=== PATIENT | male | born 1995 | race Caucasian/White ===

== ENCOUNTER 2024-05-31 17:04 | Emergency (ER) | payer MEDICAID, OTHER ==
[~2024-05-31] VITALS: Ht 180.3 cm; Wt 95.7 kg
[2024-05-31] MEDS: KETOROLAC TROMETH 30 MG/ML 1ML VIAL IV ONE (17:38)
[2024-05-31] MEDS: methylPREDNISolone SOD SUCC 125 MG/2 ML VL IV ONE (17:38)
[2024-05-31] MEDS ORDERED: NAP500T PO (18:53)
[2024-05-31 19:31] VITALS: BP 108/60; PULSE 58; RESP 17; TEMP 98.2; O2SAT 98
== END 2024-05-31 19:36 | disposition home or self-care (01) ==
LOC: ER 17:04
DX: M25.561 Pain in right knee (principal); Z88.5 Allergy status to narcotic agent
CPT/HCPCS: 73562; 96374; 96375; 99284; J1885; J2919